=== PATIENT | female | born 1985 | race Caucasian/White ===

== ENCOUNTER 2016-12-19 20:03 | Emergency (ER) | payer MEDICARE, OTHER ==
[2016-12-19 20:37] LABS: BILIRUBIN NEGATIVE (NEGATIVE); BLOOD 2+ Ery/uL (NEGATIVE); CLARITY HAZY (CLEAR); COLOR YELLOW (YELLOW); GLUCOSE (U) NORMAL (NORMAL); KETONE (U) NEGATIVE (NEGATIVE); LEUKOCYTES NEGATIVE Leu/uL (NEGATIVE); NITRITE NEGATIVE (NEGATIVE); PROTEIN NEGATIVE (NEGATIVE); UROBILINOGEN 0.2 mg/dL (0.2-1.0)
[2016-12-19 21:06] LABS: BACTERIA 1+; URINARY WBC RARE
[2016-12-19 21:07] LABS: AMORPHOUS URATES CRYSTALS MODERATE
[2016-12-19 22:31] LABS: BASOPHIL 0.5 % (0-2); EOSINOPHIL 3.3 % (0-5); HCT 41.7 % (37.0-47.0); HGB 14.2 g/dl (12.5-16.0); LYMPHOCYTE 34.6 % (15-48); MCH 28.3 pg (25.0-31.0); MCHC 34.1 g/dL (32.0-36.0); MCV 83.1 fL (78.0-100.0); MONOCYTE 8.3 % (0-12); MPV 10.1 fL (6.0-9.5); NEUTROPHIL 53.3 % (41-80); PLT 256 K/uL (150-400); RBC 5.02 M/uL (4.20-5.40); RDW 14.7 % (11.5-14.0); WBC 9.2 K/uL (4.0-10.5)
[2016-12-19 22:58] LABS: ALBUMIN 4.4 g/dL (3.5-5.0); BILIRUBIN - TOTAL 0.2 mg/dL (0.1-1.0); CREATININE 0.8 mg/dL (0.5-1.0); GLOBULIN (CALCULATION) 2.4 g/dL (2.2-4.2); POTASSIUM 4.2 mmol/L (3.5-5.1); TOTAL PROTEIN 6.8 g/dL (6.4-8.3)
== END 2016-12-19 23:20 | disposition home or self-care (01) ==
LOC: FER 20:03
PROVIDERS: Emergency Medicine
DX: R10.84 Generalized abdominal pain (principal); F17.200 Nicotine dependence, unspecified, uncomplicated
CPT/HCPCS: 36415; 74000; 80053; 81001; 83690; 85025; 93005

== ENCOUNTER 2017-01-12 23:40 | Emergency (ER) | payer OTHER | END 2017-01-13 04:24 | disposition home or self-care (01) | LOC: FER 23:40 | DX: S06.0X9A Concussion with loss of consciousness of unspecified duration, initial encounter (principal); S13.4XXA Sprain of ligaments of cervical spine, initial encounter; S33.5XXA Sprain of ligaments of lumbar spine, initial encounter; H53.8 Other visual disturbances; G25.81 Restless legs syndrome; F17.210 Nicotine dependence, cigarettes, uncomplicated; Z88.0 Allergy status to penicillin; Z88.6 Allergy status to analgesic agent; Z88.8 Allergy status to other drugs, medicaments and biological substances; V89.2XXA Person injured in unspecified motor-vehicle accident, traffic, initial encounter; Y92.410 Unspecified street and highway as the place of occurrence of the external cause | CPT/HCPCS: 70450; 71010; 72040; 72072; 72110 ==

== ENCOUNTER 2017-03-25 03:52 | Emergency (ER) | payer MEDICARE, OTHER ==
[2017-03-25 04:34] LABS: BILIRUBIN NEGATIVE (NEGATIVE); BLOOD 2+ Ery/uL (NEGATIVE); CLARITY CLEAR (CLEAR); COLOR YELLOW (YELLOW); GLUCOSE (U) NORMAL (NORMAL); KETONE (U) NEGATIVE (NEGATIVE); LEUKOCYTES NEGATIVE Leu/uL (NEGATIVE); NITRITE NEGATIVE (NEGATIVE); PROTEIN NEGATIVE (NEGATIVE); UROBILINOGEN 0.2 mg/dL (0.2-1.0)
[2017-03-25 04:38] LABS: BACTERIA TRACE; MUCOUS MODERATE
[2017-03-25 04:41] LABS: BASOPHIL 0.5 % (0-2); EOSINOPHIL 2.2 % (0-5); HCT 37.4 % (37.0-47.0); LYMPHOCYTE 32.3 % (15-48); MCH 28.6 pg (25.0-31.0); MCHC 34.8 g/dL (32.0-36.0); MCV 82.2 fL (78.0-100.0); MONOCYTE 7.2 % (0-12); MPV 9.8 fL (6.0-9.5); NEUTROPHIL 57.8 % (41-80); PLT 243 K/uL (150-400); RBC 4.55 M/uL (4.20-5.40); RDW 14.2 % (11.5-14.0); WBC 10.1 K/uL (4.0-10.5)
[2017-03-25 05:03] LABS: ALBUMIN 3.9 g/dL (3.5-5.0); BILIRUBIN - TOTAL 0.2 mg/dL (0.1-1.0); CREATININE 0.9 mg/dL (0.5-1.0); GLOBULIN (CALCULATION) 2.7 g/dL (2.2-4.2); POTASSIUM 3.6 mmol/L (3.5-5.1); TOTAL PROTEIN 6.6 g/dL (6.4-8.3)
== END 2017-03-25 06:18 | disposition home or self-care (01) ==
LOC: FER 03:52
PROVIDERS: Emergency Medicine
DX: R10.2 Pelvic and perineal pain (principal); F17.200 Nicotine dependence, unspecified, uncomplicated; Z87.42 Personal history of other diseases of the female genital tract; Z88.0 Allergy status to penicillin; Z88.6 Allergy status to analgesic agent; Z88.8 Allergy status to other drugs, medicaments and biological substances; Z90.49 Acquired absence of other specified parts of digestive tract
CPT/HCPCS: 36415; 74000; 80053; 81001; 83690; 85025; J1885

== ENCOUNTER 2017-06-19 23:58 | Emergency (ER) | payer OTHER ==
[2017-06-20 01:15] LABS: BILIRUBIN NEGATIVE (NEGATIVE); BLOOD 2+ Ery/uL (NEGATIVE); CLARITY CLOUDY (CLEAR); COLOR YELLOW (YELLOW); GLUCOSE (U) NORMAL (NORMAL); KETONE (U) NEGATIVE (NEGATIVE); LEUKOCYTES 2+ Leu/uL (NEGATIVE); NITRITE NEGATIVE (NEGATIVE); PROTEIN NEGATIVE (NEGATIVE)
[2017-06-20 01:20] LABS: BACTERIA 1+
[2017-06-20 01:21] LABS: YEAST PRESENT
== END 2017-06-20 01:23 | disposition home or self-care (01) ==
LOC: FER 23:58
PROVIDERS: Emergency Medicine Emergency Medical Services
DX: B37.3 Candidiasis of vulva and vagina (principal); Z90.49 Acquired absence of other specified parts of digestive tract; Z88.0 Allergy status to penicillin; Z88.6 Allergy status to analgesic agent; Z88.8 Allergy status to other drugs, medicaments and biological substances; F17.200 Nicotine dependence, unspecified, uncomplicated; Z79.899 Other long term (current) drug therapy
CPT/HCPCS: 81001; 99283

== ENCOUNTER 2020-11-29 17:12 | Emergency (ER) | payer MEDICARE, OTHER ==
[~2020-11-29 17:12] MED LIST: ACETAMINOPHEN500 M1 PO; BACTRIM DS TAB1 EACH PO; BENTYL10 MG PO; CARAFATE S500 MG/TSP PO; CIPRO500 MG PO; FLEXERIL10 MG PO; LEVAQUIN500 MG PO; LIDOCAINE 5% P1 EACH TOP; MEDROL 4MG DOSEP4 MG PO; METRONIDAZOLE500 MG PO; MOBIC7.5 MG PO; MUCINEX 600MG600 MG PO; ONDANSETRON ODT4 MG SL; PERCOCET 5-3251 EACH PO; PROAIR HFA8.5 GM INH; PYRIDIUM200 MG PO; REQUIP1 MG PO; ROBAXIN750 MG PO; ROPINIROLE HCL4 MG PO; TESSALON PERLE100 M1 PO; TESSALON PERLE100 MG PO; TRAMADOL HCL50 MG PO; VENTOLIN HFA IN18 GM INH; ZOFRAN4 MG PO; ZPAK PO
[2020-11-29 18:32] LABS: BASOPHIL 0.7 % (0-2); EOSINOPHIL 1.4 % (0-5); HGB 13.6 g/dl (12.5-16.0); LYMPHOCYTE 43.3 % (15-48); MCH 28.9 pg (25.0-31.0); MCHC 33.2 g/dL (32.0-36.0); MONOCYTE 3.6 % (0-12); NEUTROPHIL 50.8 % (41-80); NRBC 0; PLT 229 K/uL (150-400); RBC 4.71 M/uL (4.20-5.40); WBC 5.5 K/uL (4.0-10.5)
[2020-11-29 18:43] LABS: ALBUMIN 3.7 g/dL (3.4-5.0); BILIRUBIN - TOTAL 0.6 mg/dL (0.2-1.0); BUN/CREAT RATIO (CALC) 13.3 RATIO; CREATININE 0.75 mg/dL (0.51-0.95); POTASSIUM 3.4 mmol/L (3.5-5.1); TOTAL PROTEIN 6.7 g/dL (6.4-8.2)
[2020-11-29 18:55] LABS: BILIRUBIN NEGATIVE (NEGATIVE); BLOOD TRACE-INTACT Ery/uL (NEGATIVE); CLARITY CLEAR (CLEAR); COLOR YELLOW (YELLOW); GLUCOSE (U) NORMAL (NORMAL); LEUKOCYTES NEGATIVE Leu/uL (NEGATIVE); NITRITE NEGATIVE (NEGATIVE); PROTEIN NEGATIVE (NEGATIVE); SPECIFIC GRAVITY 1.025 (1.001-1.030); UROBILINOGEN 0.2 mg/dL (0.2-1.0)
[2020-11-29 18:57] LABS: AMPHETAMINES NEGATIVE (NEGATIVE); BARBITURATES NEGATIVE (NEGATIVE); ECSTASY (MDMA) NEGATIVE (NEGATIVE); MARIJUANA (THC) NEGATIVE (NEGATIVE); METHADONE NEGATIVE (NEGATIVE); OPIATES NEGATIVE (NEGATIVE); OXYCODONE NEGATIVE (NEGATIVE)
[2020-11-29 19:11] LABS: AMORPHOUS URATES CRYSTALS MODERATE; BACTERIA 2+
[2020-11-29] MEDS ORDERED: METRONIDAZOLE500 MG PO (23:20)
== END 2020-11-29 23:32 | disposition home or self-care (01) ==
LOC: FER 17:12
PROVIDERS: Emergency Medicine
DX: T43.611A Poisoning by caffeine, accidental (unintentional), initial encounter (principal); R20.2 Paresthesia of skin; A59.00 Urogenital trichomoniasis, unspecified; F17.210 Nicotine dependence, cigarettes, uncomplicated; I48.91 Unspecified atrial fibrillation; Z88.0 Allergy status to penicillin; Z88.6 Allergy status to analgesic agent; Z88.8 Allergy status to other drugs, medicaments and biological substances
CPT/HCPCS: 36415; 80053; 80305; 81001; 82550; 85025; J2060; J7030

== ENCOUNTER 2021-02-13 18:43 | Emergency (ER) | payer MEDICARE, OTHER ==
[2021-02-13] MEDS ORDERED: DICLOFENAC SODI75 MG PO (19:19)
[2021-02-13] MEDS ORDERED: ZPAK PO (19:19)
== END 2021-02-13 19:44 | disposition home or self-care (01) ==
LOC: FER 18:43
DX: H92.01 Otalgia, right ear (principal); F17.210 Nicotine dependence, cigarettes, uncomplicated; Z88.0 Allergy status to penicillin; Z88.6 Allergy status to analgesic agent; Z88.8 Allergy status to other drugs, medicaments and biological substances
CPT/HCPCS: 99282

== ENCOUNTER 2021-03-01 23:12 | Emergency (ER) | payer MEDICARE, OTHER ==
[~2021-03-01 23:12] MED LIST changes: +DICLOFENAC SODI75 MG PO
[2021-03-02 00:11] LABS: BILIRUBIN 1+ mg/dL (NEGATIVE); BLOOD TRACE-INTACT Ery/uL (NEGATIVE); CLARITY CLEAR (CLEAR); COLOR YELLOW (YELLOW); GLUCOSE (U) NORMAL (NORMAL); LEUKOCYTES TRACE Leu/uL (NEGATIVE); NITRITE NEGATIVE (NEGATIVE); PROTEIN TRACE (LOW) mg/dL (NEGATIVE); SPECIFIC GRAVITY >=1.030 (1.001-1.030); pH 5.5 (5.0-9.0)
[2021-03-02 00:11] LABS: BASOPHIL 0.2 % (0-2); HCT 37.5 % (37.0-47.0); HGB 12.9 g/dl (12.5-16.0); LYMPHOCYTE 10.6 % (15-48); MCH 29.5 pg (25.0-31.0); MCHC 34.4 g/dL (32.0-36.0); MCV 85.6 fL (78.0-100.0); MONOCYTE 5.5 % (0-12); MPV 10.5 fL (6.0-9.5); NEUTROPHIL 82.4 % (41-80); NRBC 0; PLT 198 K/uL (150-400); RBC 4.38 M/uL (4.20-5.40); RDW 13.6 % (11.5-14.0); WBC 9.5 K/uL (4.0-10.5)
[2021-03-02 00:21] LABS: AMORPHOUS URATES CRYSTALS TRACE; BACTERIA 2+; MUCOUS MODERATE
[2021-03-02 00:27] LABS: ALBUMIN 3.6 g/dL (3.4-5.0); BILIRUBIN - TOTAL 0.6 mg/dL (0.2-1.0); BUN/CREAT RATIO (CALC) 16.1 RATIO; CREATININE 0.62 mg/dL (0.51-0.95); GLOBULIN (CALCULATION) 2.9 g/dL; POTASSIUM 3.5 mmol/L (3.5-5.1); TOTAL PROTEIN 6.5 g/dL (6.4-8.2)
[2021-03-02] MEDS ORDERED: PYRIDIUM200 MG PO (02:13)
[2021-03-02] MEDS ORDERED: MACROBID100 MG PO (02:13)
== END 2021-03-02 02:30 | disposition home or self-care (01) ==
LOC: FER 23:12
PROVIDERS: Emergency Medicine
DX: N39.0 Urinary tract infection, site not specified (principal); N20.0 Calculus of kidney; F17.200 Nicotine dependence, unspecified, uncomplicated; Z90.49 Acquired absence of other specified parts of digestive tract; Z90.710 Acquired absence of both cervix and uterus; Z87.442 Personal history of urinary calculi; Z88.0 Allergy status to penicillin; Z88.6 Allergy status to analgesic agent; Z88.8 Allergy status to other drugs, medicaments and biological substances
CPT/HCPCS: 36415; 80053; 81001; 83690; 85025; 87088; J1885

== ENCOUNTER 2021-05-22 15:42 | Emergency (ER) | payer MEDICARE, OTHER ==
[~2021-05-22 15:42] MED LIST changes: +MACROBID100 MG PO
[2021-05-22] MEDS ORDERED: NAPROXEN500 MG PO (17:08)
[2021-05-22] MEDS ORDERED: CYCLOBENZAPRINE10 MG PO (17:08)
== END 2021-05-22 18:11 | disposition home or self-care (01) ==
LOC: FER 15:42
DX: M94.0 Chondrocostal junction syndrome [Tietze] (principal); M62.830 Muscle spasm of back; F17.200 Nicotine dependence, unspecified, uncomplicated; Z87.09 Personal history of other diseases of the respiratory system; Z88.0 Allergy status to penicillin; Z88.6 Allergy status to analgesic agent; Z88.8 Allergy status to other drugs, medicaments and biological substances
CPT/HCPCS: 71045